=== PATIENT | female | born 2000 | race Caucasian/White ===

== ENCOUNTER 2022-07-17 20:54 | Emergency (ER) | payer BC ==
[~2022-07-17] VITALS: Ht 152.4 cm; Wt 66.7 kg
[2022-07-17 21:12] VITALS: BP 134/84
[2022-07-17 21:21] LABS: CLARITY URINE CLOUDY (CLEAR); COLOR URINE ORANGE (YELLOW); KETONES URINE NEGATIVE (NEGATIVE); LEUKOCYTE ESTERASE URINE 3+ (NEGATIVE); NITRITE URINE POSITIVE (NEGATIVE); OCCULT BLOOD URINE 3+ (NEGATIVE); PH URINE 5.5 (4.5-8.0); PROTEIN URINE 1+ (NEGATIVE)
[2022-07-18 02:21] LABS: UCG SCREEN NEGATIVE
[2022-07-18] MEDS ORDERED: CIPR-263 MT (03:08)
== END 2022-07-18 04:22 | disposition home or self-care (01) ==
LOC: ER 20:54
DX: M54.50 Low back pain, unspecified (principal); R30.9 Painful micturition, unspecified
CPT/HCPCS: 81003; 81025; 87077; 87186; 99283